=== PATIENT | female | born 1950 ===

== ENCOUNTER 2024-11-16 05:21 | Day surgery (SDC) | payer OTHER ==
[2024-11-13 17:50] VITALS: BMI 38.0
[2024-11-16] MEDS ORDERED: LIDOCAINE HCL/PF 2% SDV 5ML VIAL ONE (07:09)
[2024-11-16] MEDS ORDERED: PROPOFOL 20 ML ONE (07:09)
[2024-11-16] MEDS ORDERED: MIDAZOLAM HCL 2 MG/2 ML SINGLE DOSE VIAL ONE (07:09)
[2024-11-16] MEDS ORDERED: LIDOCAINE HCL 1%, 10 MG/ML (20ML VIAL) ONE (07:14)
[2024-11-16] MEDS ORDERED: BUPIVACAINE HCL/PF 0.5% (5MG/ML) 10 ML VIAL ONE (07:14)
[2024-11-16] MEDS ORDERED: GENTAMICIN SO4 80 MG/2 ML VIAL ONE (07:14)
[2024-11-16] MEDS ORDERED: DEXAMETHASONE SOD PHOSPHATE 4 MG/1 ML VIAL ONE ×2 (07:15→07:39)
[2024-11-16] MEDS: ceFAZolin 2 GRAM PREMIX BAG IVPB ONE (07:36)
[2024-11-16] MEDS: BUPIVACAINE HCL/PF 0.5% (5MG/ML) 10 ML VIAL IJ ONE (07:37)
[2024-11-16] MEDS: LIDOCAINE HCL 1%, 10 MG/ML (20ML VIAL) NR ONE (07:37)
[2024-11-16] MEDS ORDERED: ONDANSETRON 4 MG/2 ML VIAL ONE (07:39)
[2024-11-16] MEDS ORDERED: ceFAZolin SODIUM 1 GM VIAL ONE (07:39)
[2024-11-16] MEDS ORDERED: KETOROLAC TROMETHAMINE 30 MG/1 ML VIAL ONE (07:39)
[2024-11-16] MEDS: DEXAMETHASONE SOD PHOSPHATE 4 MG/1 ML VIAL IVPUSH ONE (08:06)
[2024-11-16] MEDS ORDERED: PROMETHAZINE HCL 25 MG/1 ML VIAL IVPB PRN (08:13)
[2024-11-16] MEDS ORDERED: oxyCODONE HCL 5 MG TABLET PO PRN ×2 (08:13)
[2024-11-16] MEDS ORDERED: ONDANSETRON 4 MG/2 ML VIAL IVPUSH PRN (08:13)
[2024-11-16] MEDS ORDERED: LACTATED RINGERS SOLUTION 1,000 ML IV SCH (08:15)
[2024-11-16] MEDS: ACETAMINOPHEN INJECTION 100 ML ONE (09:19)
[2024-11-16] MEDS: ACETAMINOPHEN 1000 MG/100 ML BAG IVPB ONE (09:19)
[2024-11-16 10:12] VITALS: RESP 16
[2024-11-16 11:08] VITALS: TEMP 96.8
[2024-11-16 13:31] VITALS: BP 103/49; PULSE 58
== END 2024-11-16 13:46 | disposition home or self-care (01) ==
LOC: JASU-SURG 05:21
PROVIDERS: ATTEND Podiatrist Foot Surgery
PROC: 0SRQ0JZ Replacement of Left Toe Phalangeal Joint with Synthetic Substitute, Open Approach (ICD-10-PCS; principal; 2024-11-16 07:30)
DX: M20.42 Other hammer toe(s) (acquired), left foot (principal)
CPT/HCPCS: 73630-TC-LT; 73660-TC-LT-FY; 82962; 88305-TC; 88311-TC; 94760; J0131